=== PATIENT | male | born 1945 | race Caucasian/White ===

== ENCOUNTER 2021-07-01 15:13 | Emergency (ER) | payer OTHER ==
[2021-07-01 15:22] VITALS: BMI 22.7
[2021-07-01] MEDS ORDERED: ONDANSETRON *ODT* 4 MG TABLET SL ONE (15:33)
[2021-07-01] MEDS ORDERED: ACETAMINOPHEN 500 MG TABLET (FP) PO ONE (15:33)
[2021-07-01] MEDS ORDERED: ONDANSETRON *ODT* 4 MG TABLET ONE (15:34)
[2021-07-01] MEDS ORDERED: ACETAMINOPHEN 500 MG TABLET (FP) ONE (15:35)
[2021-07-01 18:57] VITALS: BP 116/65; PULSE 99; TEMP 100
== END 2021-07-01 18:10 | disposition home or self-care (01) ==
LOC: JER 15:13
DX: R53.81 Other malaise (principal); R53.83 Other fatigue; R50.9 Fever, unspecified; Z11.52 Encounter for screening for COVID-19
CPT/HCPCS: 71046-TC-FY; 93005; 93010; 99285-25; C9803; Q0162; U0003; U0005

== ENCOUNTER 2023-06-08 09:44 | Inpatient (IN) | payer OTHER ==
[2023-06-08] MEDS ORDERED: ACETAMINOPHEN 1000 MG/100 ML BAG IVPB ONE (10:42)
[2023-06-08] MEDS ORDERED: SODIUM CHLORIDE 0.9% 500 ML INFUS.BAG IV ONE (10:42)
[2023-06-08] MEDS ORDERED: FAMOTIDINE 20 MG/50 ML IVPB 20 MG/50 ML MG IVPB ONE ×2 (10:42→10:52)
[2023-06-08] MEDS ORDERED: ACETAMINOPHEN INJECTION 100 ML IVPB ONE (10:52)
[2023-06-08 11:50] LABS: POTASSIUM 4.6 mmol/L (3.5-5.1)
[2023-06-08 11:52] LABS: BASO % 0.2 % (0-2.0); CALCIUM 9.9 mg/dL (8.5-10.1); EOS % 0.1 % (0-4.5); HEMATOCRIT 45.5 % (35.4-49); HEMOGLOBIN 15.5 GM/dL (11.7-16.9); LYMPH % 9.5 % (8-40); MCH 32.6 pg (25.7-33.7); MCHC 34.1 g/dl (32.0-35.9); MEAN CELL VOLUME 95.6 fl (80-96); MEAN PLT VOLUME 10.5 fl (7.5-11.1); MONO % 10.2 % (3.8-10.2); PLATELET COUNT 98 10^3/uL (134-434); RBC 4.76 M/mm3 (4.00-5.60)
[2023-06-08 11:53] LABS: ALBUMIN 3.9 g/dl (3.4-5.0); BLOOD UREA NITROGEN 22.5 mg/dL (7-18)
[2023-06-08 11:56] LABS: CREATININE 1.6 mg/dL (0.55-1.3)
[2023-06-08 11:57] LABS: TOT PROT 7.4 g/dl (6.4-8.2)
[2023-06-08 11:58] LABS: BILIRUBIN,TOTAL 0.5 mg/dL (0.2-1)
[2023-06-08 12:00] LABS: INR 1.17 (0.83-1.09); PROTHROMBIN TIME (PATIENT) 13.5 SEC (9.7-13.0)
[2023-06-08 12:02] LABS: ACTIVATED PTT 29.2 SECONDS (25.2-36.5)
[2023-06-08 12:12] LABS: EPI CELLS 2 /uL (0-25.1); HYALINE CASTS 0 /uL (0-3.1); PH,URINE 5.5 (5.0-8.0); URINE APPEARANCE CLEAR; URINE BACTERIA 3 /uL (0-1359); URINE BILIRUBIN NEGATIVE (NEGATIVE); URINE COLOR YELLOW; URINE GLUCOSE (UA) NEGATIVE (NEGATIVE); URINE KETONE 1+ (NEGATIVE); URINE LEUK ESTERASE NEGATIVE (NEGATIVE); URINE NITRITE NEGATIVE (NEGATIVE); URINE PROTEIN 1+ (NEGATIVE); URINE RBC 46 /uL (0-23.9); URINE UROBILINOGEN 0.2 mg/dL (0.2-1.0); URINE WBC 6 /uL (0-25.8)
[2023-06-08 15:52] VITALS: BMI 25.5
[2023-06-08] MEDS: ASPIRIN 81 MG CHEWABLE TABLETS PO SCH (17:23)
[2023-06-08] MEDS: HEPARIN NA (PORCINE) 5,000 UNITS/ML 1ML VIAL SQ SCH (21:47)
[2023-06-09 08:38] LABS: HEMATOCRIT 39.5 % (35.4-49); HEMOGLOBIN 13.7 GM/dL (11.7-16.9); MCH 33.2 pg (25.7-33.7); MCHC 34.6 g/dl (32.0-35.9); MEAN CELL VOLUME 96.1 fl (80-96); MEAN PLT VOLUME 10.8 fl (7.5-11.1); PLATELET COUNT 65 10^3/uL (134-434); RBC 4.11 M/mm3 (4.00-5.60); RDW 12.8 % (11.9-15.9); WHITE BLOOD COUNT 3.4 K/mm3 (4.0-10.0)
[2023-06-09 08:55] LABS: POTASSIUM 4.1 mmol/L (3.5-5.1)
[2023-06-09 09:00] LABS: ALBUMIN 3.3 g/dl (3.4-5.0); CALCIUM 8.9 mg/dL (8.5-10.1)
[2023-06-09 09:01] LABS: BLOOD UREA NITROGEN 21.6 mg/dL (7-18)
[2023-06-09 09:04] LABS: CREATININE 1.5 mg/dL (0.55-1.3)
[2023-06-09 09:05] LABS: BILIRUBIN,TOTAL 0.5 mg/dL (0.2-1); TOT PROT 6.3 g/dl (6.4-8.2)
[2023-06-09] MEDS: HEPARIN NA (PORCINE) 5,000 UNITS/ML 1ML VIAL SQ SCH ×3 (09:14→22:15)
[2023-06-09] MEDS: ASPIRIN 81 MG CHEWABLE TABLETS PO SCH (09:14)
[2023-06-09 10:21] LABS: ANISOCYTOSIS 0; HELMET CELLS 0; HOWELL-JOLLY BODIES 0; MACROCYTOSIS 0; OVALOCYTE 0; ROULEAU 0; SICKELED CELLS 0; TARGET CELLS 0; TEAR DROP CELLS 0; TOXIC GRANULATION 0
[2023-06-09] MEDS ORDERED: CEFTRIAXONE 2 GM in DEXTROSE 5%-WATER 100 ML IVPB ONE (11:05)
[2023-06-09] MEDS ORDERED: ACETAMINOPHEN 1000 MG/100 ML BAG IVPB PRN (17:33)
[2023-06-09] MEDS: DOXYCYCLINE INJECTION 100 MG in DEXTROSE 5%-WATER 100 ML IVPB SCH (21:03)
[2023-06-10] MEDS: DOXYCYCLINE INJECTION 100 MG in DEXTROSE 5%-WATER 100 ML IVPB SCH ×2 (09:23→21:05)
[2023-06-10] MEDS: ASPIRIN 81 MG CHEWABLE TABLETS PO SCH (09:23)
[2023-06-10] MEDS: CEFTRIAXONE 2 GM in DEXTROSE 5%-WATER 100 ML IVPB SCH (09:23)
[2023-06-10 09:34] LABS: HEMATOCRIT 41.1 % (35.4-49); HEMOGLOBIN 13.9 GM/dL (11.7-16.9); MCH 32.7 pg (25.7-33.7); MCHC 33.7 g/dl (32.0-35.9); MEAN PLT VOLUME 11.5 fl (7.5-11.1); PLATELET COUNT 52 10^3/uL (134-434); RBC 4.24 M/mm3 (4.00-5.60); RDW 12.5 % (11.9-15.9); WHITE BLOOD COUNT 2.7 K/mm3 (4.0-10.0)
[2023-06-10 09:57] LABS: ALBUMIN 3.3 g/dl (3.4-5.0); CALCIUM 8.7 mg/dL (8.5-10.1)
[2023-06-10 09:58] LABS: BLOOD UREA NITROGEN 24.8 mg/dL (7-18)
[2023-06-10 10:00] LABS: CREATININE 1.4 mg/dL (0.55-1.3)
[2023-06-10 10:02] LABS: TOT PROT 6.4 g/dl (6.4-8.2)
[2023-06-10 10:03] LABS: BILIRUBIN,TOTAL 0.4 mg/dL (0.2-1)
[2023-06-10] MEDS: HEPARIN NA (PORCINE) 5,000 UNITS/ML 1ML VIAL SQ SCH (10:41)
[2023-06-10 10:45] LABS: ANISOCYTOSIS 0; HELMET CELLS 0; HOWELL-JOLLY BODIES 0; MACROCYTOSIS 0; OVALOCYTE 0; ROULEAU 0; SICKELED CELLS 0; TARGET CELLS 0; TEAR DROP CELLS 0; TOXIC GRANULATION 0
[2023-06-11 08:14] LABS: HEMOGLOBIN 14.3 GM/dL (11.7-16.9); MCH 32.4 pg (25.7-33.7); MCHC 33.3 g/dl (32.0-35.9); MEAN CELL VOLUME 97.4 fl (80-96); MEAN PLT VOLUME 11.8 fl (7.5-11.1); PLATELET COUNT 59 10^3/uL (134-434); RBC 4.42 M/mm3 (4.00-5.60); RDW 12.9 % (11.9-15.9); WHITE BLOOD COUNT 3.9 K/mm3 (4.0-10.0)
[2023-06-11 08:43] LABS: POTASSIUM 4.2 mmol/L (3.5-5.1)
[2023-06-11 08:46] LABS: ALBUMIN 3.2 g/dl (3.4-5.0)
[2023-06-11 08:48] LABS: CALCIUM 8.8 mg/dL (8.5-10.1)
[2023-06-11 08:49] LABS: CREATININE 1.2 mg/dL (0.55-1.3)
[2023-06-11 08:51] LABS: BILIRUBIN,TOTAL 0.2 mg/dL (0.2-1); TOT PROT 6.4 g/dl (6.4-8.2)
[2023-06-11] MEDS: ASPIRIN 81 MG CHEWABLE TABLETS PO SCH (09:00)
[2023-06-11] MEDS: DOXYCYCLINE INJECTION 100 MG in DEXTROSE 5%-WATER 100 ML IVPB SCH ×2 (09:00→21:34)
[2023-06-11] MEDS: CEFTRIAXONE 2 GM in DEXTROSE 5%-WATER 100 ML IVPB SCH (09:00)
[2023-06-11 09:03] LABS: ANISOCYTOSIS 0; MACROCYTOSIS 0
[2023-06-12 01:58] VITALS: TEMP 98.4
[2023-06-12 08:52] LABS: BASO % 0.3 % (0-2.0); EOS % 1.6 % (0-4.5); HEMATOCRIT 45.6 % (35.4-49); HEMOGLOBIN 15.2 GM/dL (11.7-16.9); LYMPH % 44.6 % (8-40); MCH 32.6 pg (25.7-33.7); MCHC 33.5 g/dl (32.0-35.9); MEAN CELL VOLUME 97.5 fl (80-96); MEAN PLT VOLUME 11.8 fl (7.5-11.1); MONO % 10.3 % (3.8-10.2); NEUT % 43.2 % (42.8-82.8); PLATELET COUNT 98 10^3/uL (134-434); RBC 4.67 M/mm3 (4.00-5.60); RDW 12.9 % (11.9-15.9); WHITE BLOOD COUNT 4.8 K/mm3 (4.0-10.0)
[2023-06-12 09:06] LABS: POTASSIUM 4.1 mmol/L (3.5-5.1)
[2023-06-12 09:18] LABS: CALCIUM 9.5 mg/dL (8.5-10.1)
[2023-06-12] MEDS: CEFTRIAXONE 2 GM in DEXTROSE 5%-WATER 100 ML IVPB SCH (09:19)
[2023-06-12] MEDS: ASPIRIN 81 MG CHEWABLE TABLETS PO SCH (09:20)
[2023-06-12] MEDS: DOXYCYCLINE INJECTION 100 MG in DEXTROSE 5%-WATER 100 ML IVPB SCH (09:20)
[2023-06-12 09:21] LABS: CREATININE 1.2 mg/dL (0.55-1.3)
[2023-06-12 09:23] LABS: BILIRUBIN,TOTAL 0.6 mg/dL (0.2-1); TOT PROT 7.7 g/dl (6.4-8.2)
[2023-06-12 09:27] LABS: ALBUMIN 3.9 g/dl (3.4-5.0)
[2023-06-12 11:05] LABS: HIV INTERPRETATION NEGATIVE (NEGATIVE)
[2023-06-12 14:05] VITALS: BP 135/72; PULSE 66; RESP 18
[2023-06-12] MEDS ORDERED: DOXYCYCLINE HYCLATE 100 MG CAPSULE PO SCH ×2 (18:00)
== END 2023-06-12 16:06 | disposition home or self-care (01) | DRG 866 ==
LOC: JER 09:44 → JERBED 12:52 → J4W 14:49 → OBSVTOIN 06-11 14:31
PROVIDERS: ADMIT Family Medicine; ATTEND Family Medicine
DX: B34.9 Viral infection, unspecified (principal); D61.818 Other pancytopenia; A69.20 Lyme disease, unspecified; N17.9 Acute kidney failure, unspecified; G45.9 Transient cerebral ischemic attack, unspecified; D69.6 Thrombocytopenia, unspecified; R91.1 Solitary pulmonary nodule; R94.5 Abnormal results of liver function studies; R53.1 Weakness; R50.9 Fever, unspecified; N18.9 Chronic kidney disease, unspecified; J98.4 Other disorders of lung; M79.10 Myalgia, unspecified site; M25.59 Pain in other specified joint; J44.9 Chronic obstructive pulmonary disease, unspecified; G93.9 Disorder of brain, unspecified; K71.8 Toxic liver disease with other disorders of liver; T50.995A Adverse effect of other drugs, medicaments and biological substances, initial encounter
CPT/HCPCS: 0241U-QW; 36415; 70450-TC; 70551-TC; 71046-TC-FY; 80053; 80061; 81003; 82550; 82607; 82930; 82962; 83036; 83735; 84443; 84484; 85025; 85610; 85730; 86140; 86618; 86803; 87040; 87086; 87207; 87389; 87633; 87798; 93005; 93010; 93306-TC; 99285-25; G0378; J1644